=== PATIENT | female | born 1985 | race Two or more races ===

== ENCOUNTER 2019-08-26 08:41 | Emergency (ER) | payer OTHER ==
[~2019-08-26] VITALS: Ht 154.9 cm; Wt 53.6 kg
[2019-08-26 08:44] VITALS: BP 111/67
--- NOTE | 2019-08-26 09:06 | NUR ---
assumed care of pt. pt here for further exam after being seen at yesterday and dx with PNA. Dr Flores at bedside for eval
[2019-08-26] MEDS ORDERED: HYDROcodone/APAP 5/325 TABLET ONE (09:17)
--- NOTE | 2019-08-26 09:28 | NUR ---
pt resting in position of comfort. family at bedside. occasional non-productive cough. pt has been medicated per order. advised not to drive after [place]. pt verbalized understanding and family at bedside to drive her home
[2019-08-26] MEDS ORDERED: HYDROcodone/APAP 5/325 TABLET PO ONE (09:30)
== END 2019-08-26 09:47 | disposition home or self-care (01) ==
LOC: ED 09:35
DX: J18.9 Pneumonia, unspecified organism (principal); R51 Headache; R07.89 Other chest pain
CPT/HCPCS: 93005; 99283

== ENCOUNTER 2019-08-28 11:31 | Outpatient (CLI) | payer OTHER ==
[2019-08-28] MEDS ORDERED: OMNIPAQUE 350 MG/ML, 75ML BOTTLE ONE (15:46)
== END 2019-08-28 23:59 | disposition home or self-care (01) ==
LOC: CFH 11:31
PROVIDERS: ATTEND Nurse Practitioner Family
DX: J90 Pleural effusion, not elsewhere classified (principal); J18.9 Pneumonia, unspecified organism; M41.85 Other forms of scoliosis, thoracolumbar region; J98.11 Atelectasis
CPT/HCPCS: 71260; Q9967